=== PATIENT | female | born 1945 | race Caucasian/White ===

== ENCOUNTER 2018-10-15 00:27 | Day surgery (SDC) | payer MEDICARE ==
[~2018-10-15] VITALS: Ht 162.6 cm; Wt 56.7 kg
[~2018-10-15 00:27] MED LIST: ACYC-50 PO; ATOV1TAB17 PO; BIOT250012 PO; CALC1TAB58 PO; CIPR-214 PO; FISH1CAP15 PO; LOR5/325 PO; LUTE20CA11 PO; MULT1TAB64 PO; OMEG-11 PO
[2018-10-15 08:14] VITALS: BP 146/93
[2018-10-15] MEDS ORDERED: LIDOCAINE/SOD BICARB 8.4% SYR ID ONE (08:45)
[2018-10-15] MEDS ORDERED: NORMOSOL R SOLN(*) 1000 ML BAG 1,000 ML IV PRN (08:45)
[2018-10-15 10:32] VITALS: BP 97/61
[2018-10-15 10:45] VITALS: BP 102/70
--- NOTE | 2018-10-15 10:46 | Short(Outpt) Discharge Summary ---
Discharge Summary Reason for Hosp/Final Diag: (1) Screen for colon cancer Onset Date: 03/08/2015 Status: Acute Hospital Course & Plan: pt presented for colonoscopy. she tolerated the procedure well. she will be discharged home when criteria met. Departure Discharge to: Home Discharge Instructions Home Meds Active Scripts Acyclovir (ACYCLOVIR) 400 Mg Tablet, 1 TAB PO 5XD PRN for cold sore, #25 TAB 6 Refills Prov:MAXI HOLLIS MD 04/28/18 Reported Medications Fish Oil/Dha/Epa (FISH OIL 1,200 MG FISH OIL) 1 Each Capsule, 1 CAP PO QDAY 03/08/15 Calcium Carb & Cit/Vitamin D3 (CALCIUM + VITAMIN D3 CAPLET) 1 Each Tablet.er, 1 TAB PO QDAY 02/09/14 Lutein (LUTEIN) 20 Mg Capsule, 1 CAP PO QDAY 02/09/14 Multivitamin (MULTI VITAMIN DAILY) 1 Each Tablet, 1 TAB PO QDAY 02/09/14 Biotin (BIOTIN) 2,500 Mcg Capsule, 1 CAP PO QDAY 02/09/14 Diet: Regular Activity: As Tolerated Special Instructions: we will call you in 10 days with pathology results. KAREN ROWLEY Oct 15, 2018 10:46
[2018-10-15 11:00] VITALS: BP 138/80
[2018-10-15 11:26] VITALS: BP 139/81
[2018-10-15 11:28] VITALS: BP 152/93
== END 2018-10-15 11:40 | disposition home or self-care (01) ==
LOC: OR 00:27
PROVIDERS: ATTEND Surgery
DX: Z12.11 Encounter for screening for malignant neoplasm of colon (principal); K63.5 Polyp of colon; K57.30 Diverticulosis of large intestine without perforation or abscess without bleeding
CPT/HCPCS: 88305